=== PATIENT | female | born 1935 | race Caucasian/White ===

== ENCOUNTER 2016-12-16 11:26 | Day surgery (SDC) | payer MEDICARE, BC ==
[2016-12-16] MEDS ORDERED: NS 1000 ML IV SCH (12:20)
[2016-12-16] MEDS ORDERED: MUPIROCIN 2% OINT 1 APPLIC/GM SYR NASAL SCH (12:20)
[2016-12-16] MEDS ORDERED: ceFAZolin 2 GM PREMIX 50 ML IV SCH (12:30)
[2016-12-16] MEDS ORDERED: CHLORHEXIDINE GLUCONATE 2 % 1 PACK (2 CLOTHS) TOPICAL SCH (12:30)
[2016-12-16] MEDS ORDERED: POVIDONE IODINE 5% (ANTISEPSIS KIT) 4 APPLICATIONS EACH NARE SCH (12:30)
[2016-12-16] MEDS ORDERED: MIDAZOLAM HCL 5 MG/ML VIAL (1 ML) ONE (12:59)
[2016-12-16] MEDS ORDERED: CHOL1CAP8 PO (15:32)
[2016-12-16] MEDS ORDERED: CLOP75TA PO (15:32)
[2016-12-16] MEDS ORDERED: METF500T PO (15:32)
[2016-12-16] MEDS ORDERED: RANI150T PO (15:32)
[2016-12-16] MEDS ORDERED: ATOR20TA15 PO (15:32)
[2016-12-16] MEDS ORDERED: LISI10TA PO (15:32)
[2016-12-16] MEDS ORDERED: METO25TA6 PO (15:32)
[2016-12-16] MEDS ORDERED: LEVO175T2 PO (15:32)
[2016-12-16] MEDS ORDERED: SPIR25TA PO (15:32)
[2016-12-16] MEDS ORDERED: BIOTCAP PO (15:32)
[2016-12-16] MEDS ORDERED: AMLO10TA2 PO (15:32)
[2016-12-16] MEDS ORDERED: TRAZ50TA12 PO (15:32)
[2016-12-16] MEDS ORDERED: OMEGCAP PO (15:32)
[2016-12-16] MEDS ORDERED: BUME1TAB PO (15:32)
[2016-12-16] MEDS ORDERED: LORA-373 PO (15:32)
--- NOTE | 2016-12-16 17:37 | MA ---
cc: MIRI ROBERT MD DATE: 12/16/2016 PREPROCEDURE DIAGNOSIS Transient ischemic attack. PROCEDURE PERFORMED 1. 15 minutes monitored IV sedation. 2. Recorder insertion. DESCRIPTION OF PROCEDURE The patient brought to DOC unit in postabsorptive state after informed consent was obtained 4 mg of Versed and 50 mcg fentanyl was given for IV sedation. Next a Hive guard unlimited reveal link loop recorder was inserted subcutaneously to left chest. The initial position was vertically between the breast over the sternum but was later repositioned to under the left breast for better signal strength. The patient tolerated procedure well without any apparent complication. Tachybrady pause and atrial fibrillation detection was enabled. The initial R-wave was 0.44 mV. The serial number was [id number]. MD ANITA Alonzo/rigoberto /1:37 PM /5:27 PM
== END 2016-12-16 16:03 | disposition home or self-care (01) ==
LOC: HCAT 11:26 → HDIC 11:28 → HCAT 16:03
PROVIDERS: ATTEND Nuclear Medicine Nuclear Cardiology
DX: G45.9 Transient cerebral ischemic attack, unspecified (principal); I11.9 Hypertensive heart disease without heart failure; E78.5 Hyperlipidemia, unspecified; I44.7 Left bundle-branch block, unspecified; E03.9 Hypothyroidism, unspecified; G47.33 Obstructive sleep apnea (adult) (pediatric); Z79.899 Other long term (current) drug therapy
CPT/HCPCS: 33282; C1764; J0690; J2250; J3010; J7030